=== PATIENT | male | born 1950 | race Caucasian/White ===

== ENCOUNTER 2023-10-27 08:10 | Emergency (ER) | payer MEDICARE, OTHER, SELFPAY ==
[2023-10-27 08:17] VITALS: BP 146/86
--- NOTE | 2023-10-27 12:05 | ED.GENMED ---
History of Present Illness
<Megan Bennett PA-C - Last Filed: 10/27/23 18:59>
General
Chief Complaint: Musculo-Skeletal Complaint
Source: patient
Exam Limitations: none
Time Seen by Provider: 10/27/23 10:56
Nursing documentation reviewed up to this point in time: agreed with
Travel History
Have you had any contact with someone who has COVID-19?: No
Do you have any symptoms of coronavirus? Fever > 100 degrees, chills, cough, shortness of breath, sore throat, loss of taste or smell, muscle aches, or headache?: No
History of Present Illness
History of Present Illness:
Patient is a 73 year old male with history atrial fibrillation on Xarelto, CAD, hypertension, hyperlipidemia, achalasia presenting to the emergency department for evaluation of neck pain. Patient reports initial symptom onset approximately 3 days
ago with pain and stiffness in his upper neck. Pain progressively got worse and this morning he noticed some pain with swallowing and difficulty swallowing and decided to come to the emergency department for evaluation. Patient denies any
radiation of pain into his lower back or into his bilateral arms. Patient denies any numbness/tingling in bilateral arms. Patient denies weakness in lower extremities. Patient denies any fever, chills, headache, or back pain. Patient denies any
known recent bug bites or rashes.
Patient denies any known inciting trauma although he does work with large machines in the garden and initially attributed pain to pulling muscle in his neck.
Past History
<Megan Bennett PA-C - Last Filed: 10/27/23 18:59>
Past History
ED Past Medical History: Arrthythmia, CAD, HTN, Hypercholesterolemia, NIDDM and [place]
ED Past Surgical History: Appendectomy and Orthopedic (right knee replacement)
Social History
Tobacco: Non-smoker
Alcohol: Occasional
Personal:
Living: with family
Employment: Employed
Family History
Family History: Unable to obtain
Review of Systems
<Megan Bennett PA-C - Last Filed: 10/27/23 18:59>
Review of Systems
Allergies reviewed?: Yes
All Other Systems: ROS reviewed and negative except as documented in HPI and ROS
Phy Exam
<Megan Bennett PA-C - Last Filed: 10/27/23 18:59>
Physical Exam
Physical Exam:
Vitals: Patient's vital signs are stable. A-fib
General: Patient is well appearing, mild distress due to pain
Skin: Warm and dry, no rashes or lesions
Head: Normocephalic, atraumatic
Eyes: Sclera nonicteric. EOMs intact. No nystagmus.
Throat: Protecting airway. Uvula midline. No intraoral swelling or dental abscesses noted. No erythema or swelling of jawline or anterior neck
Neck: Significant tenderness of bilateral paraspinal musculature. Very limited range of motion of neck. No midline spinal tenderness or cervical spine tenderness. No palpable lymphadenopathy. No crepitus
Cardiac: Regular rate and rhythm, no murmurs.
Pulm: Normal respiratory effort, no wheezes, rales, rhonchi heard on exam.
Abdomen: No abdominal tenderness.
Extremities: No evidence of cyanosis or edema. Good distal pulses
Neuro: AAOx3. CN II-XII intact. No focal neurologic deficits. Sensation fully intact. Strength 5 out of 5 in upper and lower extremities
Psychiatric: Normal affect.
Course
<Megan Bennett PA-C - Last Filed: 10/27/23 18:59>
Orders/Labs/Results
Orders:
Orders
10/27/23 12:06
Acetaminophen [Tylenol] 650 mg PO NOW STA
10/27/23 12:42
CT Neck With Iv Contrast Urgent
Comment:
Reason For Exam: bilateral atraumatic neck pain
diazePAM [Valium Injection] 2 mg IV NOW STA
10/27/23 12:55
Complete Blood Count/With Diff Urgent
Comprehensive Metabolic Panel Urgent
Prothrombin Time Urgent
10/27/23 15:35
Consult Gastroenterology [GASTROINTESTINAL CONSULT] Urgent
Consulting Provider: Fabio De La O
Was physician already notified: Yes
Abnormal Lab Results
10/27/23
12:55
Absolute Lymphs (auto) 0.3 L 10^3/uL
(1.2-3.4)
Neutrophils % 88.8 H %
(42.2-75.2)
Lymphocytes % 4.3 L %
(20.5-51.1)
PT 15.6 H Sec
(11.4-14.6)
Glucose 175 H mg/dl
(70-99)
Total Bilirubin 1.5 H mg/dl
(0.2-1.3)
10/27/23 12:55
10/27/23 12:55
Vital Signs
Initial and Last Documented VS:
Initial Vital Signs
Temp Pulse Resp BP Pulse Ox
97.8 F 67 16 146/86 99
10/27/23 08:17 10/27/23 08:17 10/27/23 08:17 10/27/23 08:17 10/27/23 08:17
Last Documented Vital Signs
Temp Pulse Resp BP Pulse Ox
97.8 F 84 16 129/78 99
10/27/23 08:17 10/27/23 18:21 10/27/23 08:17 10/27/23 18:21 10/27/23 08:17
Tamialt;Jean Ceballos DO - Last Filed: 10/27/23 13:13>
Orders/Labs/Results
Orders:
Orders
10/27/23 12:06
Acetaminophen [Tylenol] 650 mg PO NOW STA
10/27/23 12:42
CT Neck With Iv Contrast Urgent
Comment:
Reason For Exam: bilateral atraumatic neck pain
diazePAM [Valium Injection] 2 mg IV NOW STA
10/27/23 12:55
Complete Blood Count/With Diff Urgent
Comprehensive Metabolic Panel Urgent
Prothrombin Time Urgent
10/27/23 15:35
Consult Gastroenterology [GASTROINTESTINAL CONSULT] Urgent
Consulting Provider: Fabio De La O
Was physician already notified: Yes
Abnormal Lab Results
10/27/23
12:55
Absolute Lymphs (auto) 0.3 L 10^3/uL
(1.2-3.4)
Neutrophils % 88.8 H %
(42.2-75.2)
Lymphocytes % 4.3 L %
(20.5-51.1)
PT 15.6 H Sec
(11.4-14.6)
Glucose 175 H mg/dl
(70-99)
Total Bilirubin 1.5 H mg/dl
(0.2-1.3)
10/27/23 12:55
10/27/23 12:55
Vital Signs
Initial and Last Documented VS:
Initial Vital Signs
Temp Pulse Resp BP Pulse Ox
97.8 F 67 16 146/86 99
10/27/23 08:17 10/27/23 08:17 10/27/23 08:17 10/27/23 08:17 10/27/23 08:17
Last Documented Vital Signs
Temp Pulse Resp BP Pulse Ox
97.8 F 84 16 129/78 99
10/27/23 08:17 10/27/23 18:21 10/27/23 08:17 10/27/23 18:21 10/27/23 08:17
<Megan Bennett PA-C - Last Filed: 10/27/23 18:59>
MDM/Problems Addressed
Differential Diagnosis Includes:
Not limited to: Muscle strain, muscle spasm, myositis, degenerative disease of neck, N/A neck abscess, dental abscess
MDM/Problems Addressed:
73-year-old male presenting with worsening neck pain and stiffness over the past 3 days. No known trauma. No fever, chills, headache, or systemic symptoms. Patient does have a history of achalasia for which he receives Botox injections. Starting
today he did notice some difficulty swallowing. Patient's vital signs are stable. Physical exam as above. He does appear moderately uncomfortable due to pain and stiffness of neck. No focal neurologic findings. Patient has no palpable mass or
lymphadenopathy in his neck. No evidence of dental abscess or oral swelling. Uvula is midline without any evidence of PAPER REWINDER. He does have significant tenderness along bilateral para cervical spinal muscles and sternocleidomastoid. Given
significant tenderness�will check basic labs and CT of neck to ensure no underlying deep neck infection or other etiology of pain. Suspect this is likely a muscle spasm. Will give Tylenol and IV Valium. Patient does take Xarelto�will avoid NSAIDs
for now. Will monitor closely reassess.
Labs noted. No clinically significant abnormalities. Into reassess patient at bedside and he is reporting improvement in neck stiffness and pain following Tylenol/Valium. He very clearly has improved range of motion of neck. CT pending.
CT report noted. There is no evidence of neck mass, lymphadenopathy, or abscess. They did note a significant distention of the esophagus filled with debris/food consistent with worsening achalasia since prior study. Did consult GI who came to
evaluate patient at bedside. Spoke with Dr. De La O with GI who states this is a normal finding in achalasia and does not believe would be contributing to patient's neck pain today. They will arrange for outpatient follow-up in a few weeks for
possible endoscopy.
Given patient's improvement in symptoms with muscle relaxer/Tylenol and negative CT scan�will treat pain as muscle spasm. Stable for discharge with close return precautions. Will send Valium and recommend Tylenol at home as needed. He will
follow-up with primary care in a few days.
Chronic conditions affecting care:
Achalasia
Acute Exacerbation and/or Progression of Chronic Illness:
N/A
<Megan Bennett PA-C - Last Filed: 10/27/23 18:59>
*Radiology
Radiology exam reviewed: preliminary read by ED provider and radiology read reviewed
*Pulse Oximetry
Patient hypoxic: no
*EKG
Interpreted by ED Provider?: NA
*Azure Developer Interpretation
Rate: Azure Developer- N/A
*Critical Care Note
Total Time (30-74mins, 75-104mins- exclusive of procedures): Not Applicable
<Megan Bennett PA-C - Last Filed: 10/27/23 18:59>
Patient Management
Discussion with other providers: Workers Compensation Claims Analyst ([facility] - Dr. De La O)
ED Attending Note
<NOEMÍ Hennessy Last Filed: 10/27/23 18:59>
-
Portions of this chart may have been created with voice recognition software.� Occasional wrong word or��sound alike� substitutions may have occurred due to the inherent limitations of voice recognition software.
<Jean Ceballos DO - Last Filed: 10/27/23 13:13>
ED Attending Note
Patient seen and examined by attending physician: Yes
I performed the substantive portion of visit, reviewed & personally made and approve the management plan that is documented in note by myself or ISABEL.: Yes
ED Attending Note:
I agree with Joanna's note.
Pt c/o neck pain and stiffness. Symptoms began as mild stiffness over a few days but has become significant. He cannot really move neck in any direction. He has noted that his neck is tender to touching both in the front and back. No fever. No
trauma. Pt denies previous history of significant neck pain.
General: Awake, Alert, Oriented X3. No acute distress.
Vitals: unremarkable
Head: Atraumatic
Eyes: Pupils equal, EOMI
Throat: Airway intact, no exudates
Neck: Significant tenderness to palpation over the paraspinal musculature bilaterally. Also tender to palpation over the anterior neck muscles like the sternocleidomastoid bilaterally.
Lungs: Clear and equal b/l
Heart: Regular rate, no murmurs
Abd: Soft, Nontender, No pulsatile mass
Neuro: Cranial nerves intact, muscle strength equal bilaterally
Skin: Warm, dry, no rash
Extremities: pulses equal b/l, no edema
Differential includes muscle spasm, myositis, degenerative disease of the cervical spine
Given the level of tenderness the patient has obtained a CT to exclude any inflammatory process. Will treat neck pain symptomatically with muscle relaxant. Patient does take oral anticoagulation. Therefore we will avoid NSAIDs.
Discharge Plan
Departure
Patient Disposition: Home (Routine Discharge)
Date of Disposition: 10/27/23
Time of Disposition: 17:19
Patient with high blood pressure during this ER visit?: Yes
Condition: Good
Covid-19: Not Applicable
Discharge Problem:
Neck pain
Instructions: Muscle Spasm ED, Neck Pain ED
Prescriptions:
New
diazepam 5 mg tablet
5 mg PO Q8H PRN (Reason: muscle spasm) Qty: 10 0RF
diazepam 5 mg tablet
5 mg PO Q8H PRN (Reason: muscle spasm) Qty: 10 0RF
No Action
Xarelto
1 tab PO DAILY
amlodipine
1 tab PO DAILY
carvedilol
1 tab PO DAILY
glimepiride
1 tab PO DAILY
lisinopril
1 tab PO DAILY
metformin
1 tab PO DAILY
Referrals:
Cecilia Cao NP [Specified Professional Personl] - 11/09/23 11:30 am (call if you cannot make this appt)
Noah Nash MD [Family Provider] - Follow up in 2-3 days
Activity Restrictions/Additional Instructions:
RETURN TO THE EMERGENCY DEPARTMENT WITH ANY FEVERS, CHILLS, HEADACHE, WORSENING IN NECK PAIN, DIFFICULTY SWALLOWING, SWELLING OF THROAT/MOUTH, SHORTNESS OF BREATH, NUMBNESS/TINGLING IN EXTREMITIES, WORSENING IN CURRENT SYMPTOMS, OR ANY OTHER CONCERNS
-Prescription for diazepam is been sent to your pharmacy. You can take this up to every 8 hours as needed for significant muscle spasm. This will cause drowsiness. You should not take prior to driving or operating any machinery.
-You can take Tylenol as needed for discomfort. You can apply heat/ice. You can try OTC lidocaine patches
-As discussed�you must follow-up with your primary care provider in a few days to ensure that symptoms are improving. Do not hesitate to return with any acute worsening of symptoms.
-You should follow-up with GI with the appointment as listed above. Return to the emergency department any worsening
Interventions
Interventions:
*Risk Screen - Suicide Last Done: 10/27/23 12:18
*General Assessment Last Done: 10/27/23 12:17
*Neglect/Abuse Screening Last Done: 10/27/23 12:18
ED- Fall Risk Assessment Last Done: 10/27/23 12:19
*ED COVID-19 Vaccine History Last Done: 10/27/23 08:17
*Nursing Disposition Last Done: 10/27/23 18:21
ED-Musculoskeletal Assessment Last Done: 10/27/23 12:16
Discharge Date and Time
Discharge Date/Time: 10/27/23 18:21
Print Language: SWISS
[2023-10-27] MEDS: TYLENOL 650 MG PO (12:15)
[2023-10-27] MEDS: VALIUM INJECTION 2 MG IV (13:00)
[2023-10-27 13:18] LABS: % Basophils 0.1 % (0-2); % Immature Granulocytes 0.4 % (0-0.5); % Lymphocytes 4.3 % (20.5-51.1); % Monocytes 6.4 % (1.7-9.3); % Neutrophils 88.8 % (42.2-75.2); Absolute Lymphocytes 0.3 10^3/uL (1.2-3.4); Absolute Monocytes 0.5 10^3/uL (0.1-0.6); Absolute Neutrophils 6.4 10^3/uL (1.4-6.5); Hematocrit 43.2 % (39.0-52.0); Hemoglobin 14.4 g/dL (13.0-18.0); Mean Corp Hgb Conc. 33.3 g/dL (33.0-37.0); Mean Corpuscular Hgb 30.1 pg (27.0-31.0); Mean Corpuscular Volume 90.4 fL (80.0-94.0); Mean Platelet Volume 9.7 fL (7.4-10.4); Nucleated Red Blood Cells % 0 % (-); Platelet Count 216 10^3/uL (130-400); Red Blood Cell Count 4.78 10^6/uL (4.70-6.10); Red Cell Dist. Width 13.7 % (11.5-14.5); White Blood Cell Count 7.2 10^3/uL (4.8-10.8)
[2023-10-27 13:31] LABS: INR 1.26; PT 15.6 Sec (11.4-14.6)
[2023-10-27 13:32] LABS: ALT (SGPT) 15 U/L (0-50); AST (SGOT) 18 U/L (17-59); Albumin 4.5 g/dl (3.5-5.0); Alkaline Phosphatase 122 U/L (38-126); Blood Urea Nitrogen 19 mg/dl (9-20); Calcium 9.6 mg/dl (8.4-10.2); Carbon Dioxide 25 mmol/L (22-30); Chloride 101 mmol/L (98-107); Glucose 175 mg/dl (70-99); Potassium 4.3 mmol/L (3.5-5.1); Sodium 139 mmol/L (135-145); Total Bilirubin 1.5 mg/dl (0.2-1.3); Total Protein 7.8 g/dl (6.3-8.2); eGFR > 60.00
--- NOTE | 2023-10-27 16:29 | CON.GI ---
Consultation
-
Date/Time Consultation Requested: 10/27/23
Date/Time Consultation Performed: 10/27/23 @ 16:00
Requesting Provider: Megan Bennett PA-C
Performing Provider: KHOI Martin; Dr. Fabio De La O
Reason for Consultation: dilated esophagus, achalasia
Medical History
Chief Complaint / HPI
Chief Complaint: neck pain
History of Present Illness:
The patient is a 73-year-old male with a past medical history significant atrial fibrillation on Xarelto, CAD/MS with medical management, hypertension, hyperlipidemia, type 2 diabetes on metformin, history of falls, who presents to the emergency
room with complaints of neck pain. We are being asked to evaluate for abnormal CT findings showing a dilated esophagus with history of achalasia. Upon review of prior records, the patient is known to Dr. Wagner in our office. He underwent 4
endoscopies in the year of 2022 due to recurrent dysphagia with findings of food and dilation of the esophagus. He had findings of type I achalasia on prior manometry. He was last seen in the office in February [address] Wagner, at that time
advised to have a repeat EGD for repeat Botox. He was also referred to Dr. Foster at [facility] to discuss a POEM's, although did not not want any surgical intervention at that time. He ultimately did not undergo the EGD and is now being seen
for the above presentation. His daughter had reportedly called in in August with recurrent symptoms of difficulty swallowing and was set up for an endoscopy on 11/11. The patient reports about 3 days ago he developed discomfort in his neck. He
notes this is not similar to prior episodes of food impactions as he did not feel any food getting stuck. He does admit to increased burping but denies any overt reflux or odynophagia. He is not on any PPI therapy on a regular basis. He does
admit that he had some discomfort with swallowing but was not having any difficulty getting liquids or food down. He denies any intolerance of secretions and is on a regular diet. He otherwise denies any fevers, chills, chest pain, shortness of
breath, constipation, diarrhea, melena, hematochezia, or hematemesis. He does take Xarelto with his last dose taken yesterday morning on 10/25. Prior EGD and colonoscopy as noted below. He denies any use of NSAIDs or alcohol. Currently he is
tolerating secretions but continues with significant tenderness of his neck. He did undergo CT imaging of the neck in the emergency room which showed a significantly dilated esophagus Which is filled with debris/food products, and other findings as
noted below. Labs were essentially unrevealing. He was given a muscle relaxer and is being observed for further evaluation.
Past Medical History
Past Medical History: Arrhythmias (afib on xarelto), CAD (MS), HTN, Hypercholesterolemia, NIDDM and Other (fall with pelvic fracture 2022)
Past Surgical History: Appendectomy and Orthopedic (right knee replacement)
Social History
Tobacco: Non-Smoker
Alcohol: None
Drug: None
Living: With Family
Family History
Family History: Reviewed & Not Pertinent
Allergies / Home Medications
Allergy/AdvReac Type Severity Reaction Status Date / Time
No Known Allergies Allergy Verified 09/11/22 07:58
�Medication �Instructions �Recorded
Xarelto 1 tab PO DAILY 09/11/22
amlodipine 1 tab PO DAILY 09/11/22
carvedilol 1 tab PO DAILY 09/11/22
glimepiride 1 tab PO DAILY 09/11/22
lisinopril 1 tab PO DAILY 09/11/22
metformin 1 tab PO DAILY 09/11/22
Review of Systems
-
History Source: Patient and Family
Constitutional: Reports No Symptoms
EENT: Reports No Symptoms
Respiratory: Reports No Symptoms
Cardiac: Reports No Symptoms
Abdomen/GI: Reports No Symptoms
: Reports No Symptoms
Musculoskeletal: Reports Other (neck pain/tenderness)
Skin: Reports No Symptoms
Neurological: Reports No Symptoms
Vital Signs
Temp Pulse Resp BP Pulse Ox
97.8 F 67 16 146/86 99
10/27/23 08:17 10/27/23 08:17 10/27/23 08:17 10/27/23 08:17 10/27/23 08:17
Physical Exam
Exam
General: Well Nourished, No Apparent Distress and Other (elderly appearing male in no overt distress)
HEENT: Normocephalic, Anicteric and Atraumatic
Respiratory: Clear
Cardiac: S1/S2 and Irregular Rhythm
GI: Soft, Non Tender, Non Distended and Normal Bowel Sounds
Rectal: Deferred by Provider
Musculoskeletal: No Edema and Other (+TTP posterior paraspinal/left> right neck area; minimal tenderness to the anterior neck, reduced ROM of neck)
Skin: Warm and Dry
Neuro: Awake, Alert and Oriented
Psych: Calm
Results
WBC 7.2 10^3/uL (4.8-10.8) 10/27/23 12:55
Hgb 14.4 g/dL (13.0-18.0) 10/27/23 12:55
Hct 43.2 % (39.0-52.0) 10/27/23 12:55
MCV 90.4 fL (80.0-94.0) 10/27/23 12:55
Plt Count 216 10^3/uL (130-400) 10/27/23 12:55
Absolute Neuts (auto) 6.4 10^3/uL (1.4-6.5) 10/27/23 12:55
PT 15.6 Sec (11.4-14.6) H 10/27/23 12:55
INR 1.26 10/27/23 12:55
Sodium 139 mmol/L (135-145) 10/27/23 12:55
Potassium 4.3 mmol/L (3.5-5.1) 10/27/23 12:55
Chloride 101 mmol/L (98-107) 10/27/23 12:55
Carbon Dioxide 25 mmol/L (22-30) 10/27/23 12:55
BUN 19 mg/dl (9-20) 10/27/23 12:55
Creatinine 0.8 mg/dL (0.7-1.3) 10/27/23 12:55
Calcium 9.6 mg/dl (8.4-10.2) 10/27/23 12:55
Total Bilirubin 1.5 mg/dl (0.2-1.3) H 10/27/23 12:55
AST 18 U/L (17-59) 10/27/23 12:55
ALT 15 U/L (0-50) 10/27/23 12:
Alkaline Phosphatase 122 U/L (38-126) 10/27/23 12:55
Diagnostic Image Results:
10/27/23 CT neck: IMPRESSION: 'In the visualized upper chest, there is significant distention of the esophagus, which is filled with debris/food products. This esophageal distention has increased compared to CT of the chest abdomen and pelvis from
February 19, 2023, in this patient with a history of achalasia. Loss of aeration of the nasopharynx and oropharynx when compared to CT of the cervical spine of February 19, 2023. This could simply be due to lack of air distention with supine
positioning. Note consideration would be pharyngeal mucosal hypertrophy with narrowing of the airway. There is no evidence of abscess. No evidence for neck mass. No evidence of lymphadenopathy. The prevertebral soft tissues are not abnormally
widened.'
Prior GI Procedures:
EGD 09/11/22 Dr. Sousa: Food in the esophagus. Removal was successful. Dilation in the entire esophagus. Achalasia. Injected with botulinum toxin. No gross lesions in the entire stomach. Normal duodenal bulb, first portion of the duodenum and second
portion of the duodenum.
06/26/22, Dr. Sousa: Significant amount of retained food in the middle third of the esophagus and in the lower third of the esophagus. Removal was successful. Dilation in the upper third of the esophagus, in the middle third of the esophagus and in
the lower third of the esophagus. No gross lesions in the entire stomach. Normal duodenal bulb, first portion of the duodenum and second portion of the duodenum.
06/20/22 Dr. Wagner: Normal esophagus. Despite a clear liquid diet the day prior a large amount of food (residue) in the stomach. This precludes visualization. No specimens collected
Colonoscopy: 05/14/2018 Dr. Wagner: - Non-bleeding internal hemorrhoids. Two 5 mm polyps in the ascending colon, removed with a jumbo cold forceps. Resected and retrieved. One 5 mm polyp in the descending colon, removed with a jumbo cold forceps.
Resected and retrieved.
06/27/22 EUS, Dr. Sousa: Pancreatic parenchymal abnormalities consisting of hyperechoic strands and hyperechoic foci were noted in the genu of the pancreas, pancreatic body and pancreatic tail. There was no sign of significant pathology in the main
pancreatic duct. A 35 mm by 45 mm chronic hemorrhagic pseudocyst vs possible mass lesion was seen in the pancreatic head. Given patient's history and persistence of same lesion
seen from previous imaging studies (since 2013), would favor chronic unresolved fluid collection (possibly hemorrhagic) from his pancreatitis in 2013. Tissue was obtained from this exam, and results are pending. Fine needle aspiration performed.
There was no sign of significant pathology in the common bile duct. One stone was visualized endosonographically in the gallbladder body. There was no sign of significant pathology in the ampulla. Bx benign.
Assessment / Plan
-
The patient is a 73-year-old male with a past medical history significant atrial fibrillation on Xarelto, CAD/MS with medical management, hypertension, hyperlipidemia, type 2 diabetes on metformin, history of falls, who presents to the emergency
room with complaints of neck pain. We are being asked to evaluate for abnormal CT findings showing a significantly dilated esophagus. Patient has history of achalasia, requiring multiple endoscopies in the past with Botox injection. Previously
had been referred to tertiary center although the patient declined and did not want surgical intervention. He presents with 3 days of neck pain and stiffness which is atypical of prior presentations requiring EGD for his achalasia. He denies any
overt symptoms of food impaction but does note he has been having some tenderness with swallowing and increased burping as of recently. He has been having no difficulty with solids or liquids. CT findings as above showing a significantly dilated
esophagus and other findings as noted above. He is not having any intolerance of secretions and has been tolerating a regular diet. Last EGD with Botox in August 2022, was pending EGD on 11/11 for possible repeat Botox injection.
10/27/23 CT Neck: IMPRESSION: In the visualized upper chest, there is significant distention of the esophagus, which is filled with debris/food products. This esophageal distention has increased compared to CT of the chest abdomen and pelvis from
February 19, 2023, in this patient with a history of achalasia. Loss of aeration of the nasopharynx and oropharynx when compared to CT of the cervical spine of February 19, 2023. This could simply be due to lack of air distention with supine
positioning. Note consideration would be pharyngeal mucosal hypertrophy with narrowing of the airway. There is no evidence of abscess. No evidence for neck mass. No evidence of lymphadenopathy. The prevertebral soft tissues are not abnormally
widened.
Problem list:
-Neck pain
-hx Achalasia with EGD/botox 08/2022
-elevated bilirubin, chronic, likely Gilbert's
-A-fib on Xarelto
-CAD/MS
-Hypertension
-Hyperlipidemia
-Type 2 diabetes
-History of falls
Recommendations:
-Reviewed case and findings with Dr. De La O after evaluating the pt. At this time it does not seem likely that his achalasia is related to his neck tenderness given his paraspinal tenderness of bilateral neck. This is not typical of his episodes
requiring dilation. There is no appreciated crepitus of the neck area. He is tolerating his secretions.
-Further management for neck pain as per ER physician
-The patient should be cautious with eating and try to stick to softer foods given the presence of debris and food in his esophagus
-If he has any signs of food impaction he should return to the emergency room for further evaluation
-We will get him a close follow-up in the office in 1 to 2 weeks, with plans for eventual EGD with Dr. Wagner. Appt scheduled 11/09/23 @ 11:30 with me.
Data Reviewed
-
CT Scan: Report Reviewed by me and Discussed with Physician
-
-
Thank you for consultation and allowing me to participate in the patient's care. Please call the interventional physician GI physician during the after hours with any questions or concerns.
[2023-10-27 18:19] VITALS: BP 129/78
[2023-10-27 18:21] VITALS: BP 129/78
== END 2023-10-27 18:21 | disposition home or self-care (01) ==
LOC: EMR 08:10
PROVIDERS: Physician Assistant; CONSULT PHYSICIAN Internal Medicine; EMERGENCY PHYSICIAN Emergency Medicine; FAMILY PHYSICIAN Family Medicine
DX: M54.2 Cervicalgia (principal); I48.91 Unspecified atrial fibrillation; I25.10 Atherosclerotic heart disease of native coronary artery without angina pectoris; I10 Essential (primary) hypertension; I25.2 Old myocardial infarction; E78.00 Pure hypercholesterolemia, unspecified; E11.9 Type 2 diabetes mellitus without complications; K22.0 Achalasia of cardia; Z79.01 Long term (current) use of anticoagulants; Z90.49 Acquired absence of other specified parts of digestive tract; Z96.651 Presence of right artificial knee joint
CPT/HCPCS: 99284; 96374; 70491; 80053; 85025; 85610; Q9967

== ENCOUNTER → 2023-11-03 13:29 | Outpatient (REF) | payer MEDICARE, OTHER, SELFPAY | LOC: HWRAD 13:29 | PROVIDERS: ATTENDING PHYSICIAN Physician Assistant Medical; FAMILY PHYSICIAN Family Medicine | DX: M54.2 Cervicalgia (principal) | CPT/HCPCS: 72050 ==

== ENCOUNTER 2023-11-12 06:33 | Day surgery (SDC) | payer MEDICARE, SELFPAY ==
[2023-11-12 09:12] VITALS: BMI 27.7
[2023-11-12 09:20] VITALS: BP 134/86; BMI 27.7
[2023-11-12 09:31] LABS: Glucose - Point of Care 124 mg/dl (70-99)
[2023-11-12 10:26] VITALS: BP 115/85
[2023-11-12 10:30] VITALS: BP 118/75
[2023-11-12 10:45] VITALS: BP 139/76
[2023-11-12 10:49] LABS: Glucose - Point of Care 124 mg/dl (70-99)
== END 2023-11-12 11:35 | disposition home or self-care (01) ==
LOC: SDS 06:33
PROVIDERS: ATTENDING PHYSICIAN Internal Medicine Gastroenterology
DX: K22.0 Achalasia of cardia (principal); K22.89 Other specified disease of esophagus; K22.2 Esophageal obstruction; K31.89 Other diseases of stomach and duodenum; R13.10 Dysphagia, unspecified
CPT/HCPCS: 43236; 82962; J0585

== ENCOUNTER 2024-02-29 09:25 | Emergency (ER) | payer MEDICARE, OTHER, SELFPAY ==
[2024-02-29 09:30] VITALS: BP 149/88
[2024-02-29 10:46] LABS: Urine Albumin Trace (Neg - Trace); Urine Bilirubin Negative (Negative); Urine Character Slightly Cloudy (Clear); Urine Color Yellow; Urine Glucose 3+ (Negative); Urine Ketone Trace (Negative); Urine Leukocyte Negative (Negative); Urine Nitrite Negative (Negative); Urine Occult Blood 4+ (Negative); Urine Urobilinogen Negative (Neg - 1+)
--- NOTE | 2024-02-29 10:51 | ED.GENMED ---
History of Present Illness
General
Chief Complaint: Male Genito-Urinary Symptoms
Source: patient
Exam Limitations: none
Time Seen by Provider: 02/29/24 10:27
Nursing documentation reviewed up to this point in time: agreed with
History of Present Illness
History of Present Illness:
pt is a 74 y/o M with h/o afib, CAD on xarelto
prostate ca 2 years ago s/p radiation
here with painless hematuria yesterday
pt was in [place] for the week; was on the flight home and had mutiple episodes of painless hematuria; red blood in the urine; no clots
no bacak pain, nausea/vomiting
he thinks sometime overnight he cleared up to yellow urine
n ofever, chills, vomiting, nauesa, back paina, abdomianal pain, urinary retention issues
never had any kidney stones
this has happened one other time but it resovled quickly and he did not see anyone for it
Past History
Past History
ED Past Medical History: Arrthythmia, CAD, HTN, Hypercholesterolemia, NIDDM and [place]
ED Past Surgical History: Appendectomy and Orthopedic (right knee replacement)
Social History
Tobacco: Non-smoker
Alcohol: Occasional
Personal:
Living: with family
Employment: Employed
Family History
Family History: Unable to obtain
Review of Systems
Review of Systems
Allergies reviewed?: Yes
All Other Systems: Not applicable
Phy Exam
Physical Exam
Physical Exam:
GENERAL: Alert, comfortable
Neck: supple
CARDIAC: Regular rate and rhythm .
LUNGS: Clear breath sounds bilaterally, no acute respiratory distress, no wheezes/rales/rhonchi
ABDOMEN: Soft, normal bowel sounds, nondistended, mild RLQ tenderness, no guarding, no rebound, neg her's
: normal inspection of region
nontender testicles b/l
no rashes
uncircumcized
NEUROLOGICAL: Alert and oriented, no focal neuro deficits
SKIN: Warm and dry, skin intact.
PSYCH: Normal and appropriate interaction.
Course
Orders/Labs/Results
Orders:
Orders
02/29/24 10:36
UA Reflex to Culture [Urinalysis Reflex To Culture] Urgent
Date Specimen was Collected: 02/29/24
Time Specimen was Collected: 10:29
Urine Microscopic Reflex Cult Urgent
02/29/24 10:43
CT Abd/pel Without Iv Or Oral Urgent
Comment:
Reason For Exam: hematuria; h/o prostate ca
0.9% Sodium Chloride 500 ml [Nss] 500 ml IV BOLUS
02/29/24 11:35
Complete Blood Count/With Diff Urgent
Comprehensive Metabolic Panel Urgent
02/29/24 12:52
COVID-19 Antigen Urgent
Source: Nasal Swab
Abnormal Lab Results
02/29/24 02/29/24
10:36 11:35
WBC 2.7 L 10^3/uL
(4.8-10.8)
RBC 4.35 L 10^6/uL
(4.70-6.10)
Hct 38.3 L %
(39.0-52.0)
Absolute Lymphs (auto) 0.3 L 10^3/uL
(1.2-3.4)
Immature Gran % 0.7 H %
(0-0.5)
Lymphocytes % 10.8 L %
(20.5-51.1)
Monocytes % 12.3 H %
(1.7-9.3)
Glucose 133 H mg/dl
(70-99)
Total Bilirubin 1.5 H mg/dl
(0.2-1.3)
Albumin 2.6 L g/dl
(3.5-5.0)
Urine Ketones Trace A
(Negative)
Ur Occult Blood Reflex 4+ A
(Negative)
Urine RBC >100 A /HPF
(0-2)
Urine Bacteria (Reflex) Few A
(Negative)
Urine Glucose 3+ A
(Negative)
02/29/24 11:35
02/29/24 11:35
Vital Signs
Initial and Last Documented VS:
Initial Vital Signs
Temp Pulse Resp BP Pulse Ox
98.0 F 83 16 149/88 98
02/29/24 09:30 02/29/24 09:30 02/29/24 09:30 02/29/24 09:30 02/29/24 09:30
Last Documented Vital Signs
Temp Pulse Resp BP Pulse Ox
98.0 F 76 16 147/63 98
02/29/24 09:30 02/29/24 12:47 02/29/24 12:47 02/29/24 12:47 02/29/24 12:47
MDM/Problems Addressed
MDM/Problems Addressed:
74 y/o M h/o prostate ca treated radiation at [facility] 2 years ago
on xraelto for afib
was flying home from [facility] and had several episodes of grosslybloody nonpainful urination;
it cleared overnight to yellowish
no pain
stable vitals, well appearing;
urine is 4+ blood, neg nitrite, neg LE, > 100 rbcs, 3-5 wbcs, few bacteria;
cbc wbc is 2.7, not clear why he is leukopenic; hg 13
ct small kidney stone in the L kidney pole, no hydro; no suspicious bladder findings; moderately enlarged prostate
d/w dr. garcia from urology
he didn not recommend treating the urine
reocmmended f/u with [facility]
inc fluids
also needs WBC repeated, pt aware
also aware of other findings on CT scan.
*Critical Care Note
Total Time (30-74mins, 75-104mins- exclusive of procedures): Not Applicable
ED Attending Note
-
Portions of this chart may have been created with voice recognition software.� Occasional wrong word or��sound alike� substitutions may have occurred due to the inherent limitations of voice recognition software.
Discharge Plan
Departure
Patient Disposition: Home (Routine Discharge)
Date of Disposition: 02/29/24
Time of Disposition: 13:45
Patient with high blood pressure during this ER visit?: No
Covid-19: Not Applicable
Discharge Problem:
Hematuria
Instructions: Blood in the Urine (Hematuria), Adult (DC)
Prescriptions:
No Action
Xarelto
1 tab PO DAILY
amlodipine
1 tab PO DAILY
carvedilol
1 tab PO DAILY
glimepiride
1 tab PO DAILY
lisinopril
1 tab PO DAILY
metformin
1 tab PO DAILY
Referrals:
Noah Nash MD [Family Provider] -
Activity Restrictions/Additional Instructions:
YOUR URINE DID HAVE MICROSCOPIC BLOOD BUT NO OBVIOUS INFECTION
WE SENT A URINE CULTURE
IN THE MEANTIME, DRINK FLUIDS.
HOLD YOUR XARELTO TODAY
RESUME IT TOMORROW
CALL YOUR [facility] DOCTOR - YOU MAY NEED MORE TESING
YOU WHITE BLOOD CELL COUNT IS LOW - THIS NEEDS TO BE RECHECKED IN A WEEK
RETURN FOR: SEVERE BLEEDING, INABILITY TO URINATE, ABDOMINAL PAIN, FEVER, BACK PAIN O RNAY CONCERNS.
YOUR CAT SCAN SHOWED SOME INCIDENTAL FINDINGS
Interventions
Interventions:
*Risk Screen - Suicide Last Done: 02/29/24 09:30
*General Assessment Last Done: 02/29/24 11:37
*Neglect/Abuse Screening Last Done: 02/29/24 09:30
*ED COVID-19 Vaccine History Last Done: 02/29/24 11:37
*Nursing Disposition Last Done: 02/29/24 13:54
ED-Male Genitourinary Assessment Last Done: 02/29/24 11:37
Discharge Date and Time
Discharge Date/Time: 02/29/24 13:55
Print Language: ARABIC
[2024-02-29 11:32] LABS: Urine Red Blood Cell >100 /HPF (0-2); Urine Squamous Cell 0-2 /LPF (Few)
[2024-02-29 11:33] LABS: Urine Bacteria Few (Negative)
[2024-02-29] MEDS: NSS 500 IV (11:36)
[2024-02-29 11:53] LABS: % Basophils 0.4 % (0-2); % Eosinophils 1.5 % (0-6); % Immature Granulocytes 0.7 % (0-0.5); % Lymphocytes 10.8 % (20.5-51.1); % Monocytes 12.3 % (1.7-9.3); % Neutrophils 74.3 % (42.2-75.2); Absolute Lymphocytes 0.3 10^3/uL (1.2-3.4); Absolute Monocytes 0.3 10^3/uL (0.1-0.6); Hematocrit 38.3 % (39.0-52.0); Mean Corp Hgb Conc. 33.9 g/dL (33.0-37.0); Mean Corpuscular Hgb 29.9 pg (27.0-31.0); Mean Platelet Volume 9.8 fL (7.4-10.4); Nucleated Red Blood Cells % 0 % (-); Platelet Count 192 10^3/uL (130-400); Red Blood Cell Count 4.35 10^6/uL (4.70-6.10); Red Cell Dist. Width 14.3 % (11.5-14.5); White Blood Cell Count 2.7 10^3/uL (4.8-10.8)
[2024-02-29 11:58] LABS: ALT (SGPT) 20 U/L (0-50); Albumin 2.6 g/dl (3.5-5.0); Alkaline Phosphatase 91 U/L (38-126); Blood Urea Nitrogen 17 mg/dl (9-20); Calcium 9.2 mg/dl (8.4-10.2); Carbon Dioxide 26 mmol/L (22-30); Chloride 101 mmol/L (98-107); Potassium 3.8 mmol/L (3.5-5.1); Sodium 139 mmol/L (135-145); Total Bilirubin 1.5 mg/dl (0.2-1.3); Total Protein 6.5 g/dl (6.3-8.2); eGFR > 60.00
[2024-02-29 12:19] LABS: AST (SGOT) 23 U/L (17-59); Glucose 133 mg/dl (70-99)
[2024-02-29 12:47] VITALS: BP 147/63
[2024-02-29 13:21] LABS: COVID-19 Antigen Negative (Negative)
== END 2024-02-29 13:55 | disposition home or self-care (01) ==
LOC: EMR 09:25
PROVIDERS: Physician Assistant; EMERGENCY PHYSICIAN Emergency Medicine; FAMILY PHYSICIAN Family Medicine
DX: R31.9 Hematuria, unspecified (principal); I25.10 Atherosclerotic heart disease of native coronary artery without angina pectoris; I10 Essential (primary) hypertension; E78.00 Pure hypercholesterolemia, unspecified; E11.9 Type 2 diabetes mellitus without complications; I25.2 Old myocardial infarction; I48.91 Unspecified atrial fibrillation; Z79.01 Long term (current) use of anticoagulants; Z85.46 Personal history of malignant neoplasm of prostate; Z90.49 Acquired absence of other specified parts of digestive tract; Z92.3 Personal history of irradiation; Z96.651 Presence of right artificial knee joint
CPT/HCPCS: 99284; 74176; 80053; 81003; 81015; 85025; 87811

== ENCOUNTER → 2024-06-21 14:26 | Outpatient (REF) | payer MEDICARE, OTHER, SELFPAY | LOC: EMG 14:26 | PROVIDERS: ATTENDING PHYSICIAN Orthopaedic Surgery Hand Surgery; FAMILY PHYSICIAN Family Medicine | DX: G56.03 Carpal tunnel syndrome, bilateral upper limbs (principal) | CPT/HCPCS: 95886; 95911 ==

== ENCOUNTER → 2024-10-31 16:00 | Outpatient (REF) | payer MEDICARE, OTHER, SELFPAY | LOC: RAD 16:00 | PROVIDERS: ATTENDING PHYSICIAN Family Medicine | DX: R26.9 Unspecified abnormalities of gait and mobility (principal); R51.9 Headache, unspecified | CPT/HCPCS: 70450 ==

== ENCOUNTER → 2025-03-29 18:42 | Outpatient (REF) | payer MEDICARE, OTHER, SELFPAY | LOC: MRI 3T 18:42 | PROVIDERS: ATTENDING PHYSICIAN Psychiatry & Neurology Neurology; FAMILY PHYSICIAN Family Medicine | DX: M54.50 Low back pain, unspecified (principal); M54.16 Radiculopathy, lumbar region | CPT/HCPCS: 72158; A9575 ==

== ENCOUNTER 2025-04-04 13:08 | Emergency (ER) | payer MEDICARE, OTHER, SELFPAY ==
[2025-04-04 13:10] VITALS: BP 162/83
--- NOTE | 2025-04-04 13:15 | ED.GENMED ---
History of Present Illness
General
Chief Complaint: Fall
Time Seen by Provider: 04/04/25 13:14
History of Present Illness
History of Present Illness:
FOCUSED PAST MEDICAL HISTORY
- A-fib, CAD/CA, high blood pressure, DM
REVIEW OF OLD RECORDS
- I reviewed records, the patient was seen here with hematuria 1 year ago in the emergency department
Note:
CHIEF COMPLAINT(S)
Back pain following a fall.
HISTORY OF PRESENT ILLNESS
The patient is a 75-year-old male who experienced a fall a couple of nights ago when he tripped over a gate inside the house. The fall resulted in the patient hitting his back on the gate. He reports localized pain in the back, particularly on the
right lateral side of the thoracic region. The patient denies any abdominal or chest pain and there is no evidence of bruising or lambert on the affected area. He describes difficulty walking due to the pain. There is tenderness noted on examination,
with no tenderness over the lumbar region or kidneys. There is no midline tenderness in the thoracic area. We discussed the possibility of a contusion or potential rib injury, and I explained that rib x-rays and thoracic spine x-rays will be
performed to rule out fractures. The patient has been using [id number] pain medications, with the last dose of Tylenol taken this morning.
MEDICATIONS
The patient is currently taking a blood thinner, Xarelto
REVIEW OF SYSTEMS
- Musculoskeletal: Pain localized to the back on the right lateral side of the thoracic region, difficulty walking, decreased range of motion due to pain.
- Gastrointestinal: No abdominal pain.
- General: Experiencing pain affecting mobility.
PHYSICAL EXAM
General: Alert, uncomfortable due to pain.
Skin: Warm, dry.
Head: Normocephalic, atraumatic.
Neck: Supple, trachea midline.
Eye, Ears, Nose, Mouth, and Throat: Oral mucosa moist.
Cardiovascular: Normal peripheral perfusion, No edema.
Respiratory: Respirations are non-labored.
Gastrointestinal: Abdomen nondistended, no tenderness.
Back: Mild tenderness to the right lateral of midline thoracic spine, decreased active range of motion due to pain.
Musculoskeletal: Normal strength and range of motion except in the thoracolumbar spine where range of motion is decreased due to pain.
Neurological: Alert and oriented to person, place, time, and situation, No focal neurological deficits observed.
Psychiatric: Cooperative, appropriate mood & affect.
PLAN
- Perform rib x-rays and thoracic spine x-rays to evaluate for any potential rib fractures or thoracic spine injuries.
- Administer a strong dose of 1000 mg Tylenol for pain management.
- Monitor patients response to pain medication and reassess if necessary.
DIFFERENTIAL DIAGNOSIS
The Differential Diagnosis includes, in no particular order and is not limited to:
1. Rib fracture
2. Thoracic spine fracture
3. Muscle contusion
4. Muscle strain
5. Vertebral compression fracture
6. Spinal stenosis
7. Costochondritis
8. Intervertebral disc herniation
9. Osteoporotic fracture
10. Internal organ injury (less likely given no abdominal pain)
RADIOLOGY
- T-spine and chest x-ray with right rib series obtained both which are unremarkable
UPDATE
-SUMMARY OF ENCOUNTER
The patient, a 75-year-old male, presented to the emergency department following a fall that resulted in back pain. After tripping over a gate, the patient experienced localized pain on the right lateral side of the thoracic region. Radiographic
imaging (rib x-rays and thoracic spine x-rays) were conducted, but no abnormalities, such as fractures, were identified. The possibility of a small crack or fracture that might not be visible on x-ray was discussed, along with the potential for a
contusion or bruising that could be causing the significant pain. Pain management with acetaminophen (Tylenol) was advised, with administration guidance for 1000 mg dosage up to four times a day. The risks and benefits of narcotics were also
discussed, but it was noted that the patient does not do well with narcotics, and non-narcotic pain management was preferred.
PATIENT EDUCATION AND COUNSELING
The patient was counseled on pain management using acetaminophen, recommending up to 1000 mg four times daily. The use of ice or heat for symptom relief was discussed, emphasizing that the choice depends on personal comfort. For swelling, ice is
typically recommended, while heat may benefit muscle-related discomfort. The importance of staying mobile was highlighted, suggesting walking as a beneficial activity to avoid fluid retention, rather than prolonged inactivity or bed rest.
MEDICATION RECONCILIATION
Acetaminophen (Tylenol) 1000 mg four times daily was recommended for pain management.
MEDICAL DECISION MAKING
- Number and Complexity of Problems Addressed: Acute back pain following a fall, ruling out thoracic or rib fracture through imaging. Potential musculoskeletal injury such as contusion, bruising, or minor fracture not visible on x-ray.
- Data:
Category 1
Radiology tests (rib and thoracic spine x-rays) reviewed. My independent interpretation shows no signs of fracture, supporting no need for further immediate intervention.
- Risk: Consideration of non-narcotic pain management with acetaminophen due to patients adverse history with narcotics. -Patient declines narcotic analgesia
DIAGNOSIS
- Contusion of Back, ICD-10: S20.219A
- Pain in Thoracic Spine, ICD-10: M54.6
Past History
Past History
ED Past Medical History: Arrthythmia, CAD, HTN, Hypercholesterolemia, NIDDM and [place]
ED Past Surgical History: Appendectomy and Orthopedic (right knee replacement)
Social History
Tobacco: Non-smoker
Alcohol: Occasional
Personal:
Living: with family
Employment: Employed
Family History
Family History: Unable to obtain
Phy Exam
Physical Exam
Physical Exam:
See HPI
Course
Orders/Labs/Results
Orders:
Orders
04/04/25 13:26
CR Ribs-right 3 Vw W/pa Chest* Urgent
Comment:
Reason For Exam: fall R posterior pain
CR Thoracic Spine 3 Views Urgent
Comment:
Reason For Exam: trauma pain
04/04/25 13:28
Acetaminophen [Tylenol] 1,000 mg PO NOW STA
Vital Signs
Initial and Last Documented VS:
Initial Vital Signs
Temp Pulse Resp BP Pulse Ox
36.5 C 71 18 162/83 95
04/04/25 13:10 04/04/25 13:10 04/04/25 13:10 04/04/25 13:10 04/04/25 13:10
Last Documented Vital Signs
Temp Pulse Resp BP Pulse Ox
36.5 C 71 18 162/83 95
04/04/25 13:10 04/04/25 13:10 04/04/25 13:10 04/04/25 13:10 04/04/25 13:15
*Pulse Oximetry
SaO2: 95
Oxygen Mode of Delivery: Room air
Patient hypoxic: no
*Critical Care Note
Total Time (30-74mins, 75-104mins- exclusive of procedures): Not Applicable
ED Attending Note
-
Portions of this chart may have been created with voice recognition software.� Occasional wrong word or��sound alike� substitutions may have occurred due to the inherent limitations of voice recognition software.
Discharge Plan
Departure
Patient Disposition: Home (Routine Discharge)
Date of Disposition: 04/04/25
Time of Disposition: 15:12
Patient with high blood pressure during this ER visit?: Yes
Discharge Problem:
Acute right-sided thoracic back pain
Instructions: BLOOD PRESSURE, Contusion
Prescriptions:
No Action
Xarelto
1 tab PO DAILY
amlodipine
1 tab PO DAILY
carvedilol
1 tab PO DAILY
glimepiride
1 tab PO DAILY
lisinopril
1 tab PO DAILY
metformin
1 tab PO DAILY
Referrals:
Precious Ramirez MD [Family Provider, Family Practice]
Activity Restrictions/Additional Instructions:
X-ray of chest, right ribs, and thoracic spine showed no sign of fracture. 2 extra strength Tylenol (500 mg) totaling 1000 mg, 4 times per day is recommended. Return here if worse or other concerns.
Interventions
Interventions:
*Risk Screen - Suicide Last Done: 04/04/25 13:10
*General Assessment Last Done: 04/04/25 13:10
*Neglect/Abuse Screening Last Done: 04/04/25 13:10
*ED- Fall Risk Assessment Last Done: 04/04/25 13:25
*ED COVID-19 Vaccine History Last Done: 04/04/25 13:25
*ED Influenza Vaccine History Last Done: 04/04/25 13:25
*Nursing Disposition Last Done: 04/04/25 15:26
ED-Musculoskeletal Assessment Last Done: 04/04/25 13:25
ED- Neurological Assessment Last Done: 04/04/25 13:25
ED-Skin Assessment Last Done: 04/04/25 13:25
Discharge Date and Time
Discharge Date/Time: 04/04/25 15:27
Print Language: ROMANSH
[2025-04-04 13:32] VITALS: BMI 23.5
[2025-04-04] MEDS: TYLENOL 1000 MG PO (13:33)
== END 2025-04-04 15:27 | disposition home or self-care (01) ==
LOC: EMR 13:08
PROVIDERS: EMERGENCY PHYSICIAN Emergency Medicine; FAMILY PHYSICIAN Family Medicine
DX: M54.6 Pain in thoracic spine (principal); W01.198A Fall on same level from slipping, tripping and stumbling with subsequent striking against other object, initial encounter; Y92.008 Other place in unspecified non-institutional (private) residence as the place of occurrence of the external cause; E11.9 Type 2 diabetes mellitus without complications; I25.10 Atherosclerotic heart disease of native coronary artery without angina pectoris; I48.91 Unspecified atrial fibrillation; I10 Essential (primary) hypertension; E78.00 Pure hypercholesterolemia, unspecified; I25.2 Old myocardial infarction; Z79.84 Long term (current) use of oral hypoglycemic drugs; Z79.01 Long term (current) use of anticoagulants; Z96.651 Presence of right artificial knee joint
CPT/HCPCS: 99283; 71101; 72072